=== PATIENT | male | born 1980 | race African-American/Black ===

== ENCOUNTER 2019-10-26 12:22 | Emergency (ER) | payer OTHER ==
[~2019-10-26] VITALS: Ht 182.9 cm; Wt 90.7 kg
[2019-10-26 12:22] VITALS: BP 116/77
--- NOTE | 2019-10-26 12:25 | NUR ---
ED Nurse Note: patient brought into ED from the street with [employer] by [employer] due to medical clearance. per EMS, Versed IM 5mg given by EMS en route because patient was agitated and combative. patient is appers to be calm at this time upon arrival to ED. [employer] at bedside. patient placed in a private room, patient is not giving his name and date of at this time.
--- NOTE | 2019-10-26 12:41 | Emergency Room Report ---
History of Present Illness General Chief Complaint: Medical Clearance Source: Patient Present Illness HPI 39-year-old male with unknown history of psychiatric disorder, appears to be schizophrenia brought in by [employer] for medical clearance. Patient called 911 due to hearing worsening voices. Patient is under the custody of police. Patient does not recall medication that he is taking. Refused to take Zyprexa here. Denies any suicidal homicidal ideations. Denies any pain or discomfort at this time. Has full judgment, alert and awake. In no apparent distress. Denies any fever and chills and URI symptoms. Reports that he does not know whether he has or not used drugs. Allergies: Coded Allergies: UNABLE TO ASSESS (Unverified , 10/26/19) Patient History Past Medical History: see triage record Past Surgical History: none Family History: none Immunizations: UTD Reviewed Nursing Documentation: PMH: Agreed; PSxH: Agreed Nursing Documentation-PM Past Medical History: No History, Except For Review of Systems All Other Systems: negative except mentioned in HPI Physical Exam Vital Signs Date Time Temp Pulse Resp B/P (MAP) Pulse Ox O2 Delivery O2 Flow Rate FiO2 10/26/19 12:18 98.1 111 18 116/77 (90) 98 Room Air Sp02 EP Interpretation: reviewed, normal General Appearance: alert/responsive, no apparent distress, GCS 15, non-toxic Head: atraumatic Eyes: PERRL, lids + conjunctiva normal ENT: hearing intact, no angioedema Neck: supple/symm/no masses, no meningismus Respiratory: effort normal, no rhonchi, no wheezing, chest symmetrical Cardiovascular: regular rate, rhythm, no edema Gastrointestinal: non-tender Musculoskeletal: normal inspection Psychiatric: no suicidal/homicidal ideation Skin: no rash Lymphatic: normal inspection Medical Decision Making PA Attestation All my diagnosis and treatment plans were reviewed ad discussed with my supervising physician Dr. Esteban Diagnostic Impression: Primary Impression: Psychotic disorder ER Course 39-year-old male with unknown history of psychiatric disorder, appears to be schizophrenia brought in by [employer] for medical clearance. Patient called 911 due to hearing worsening voices. Patient is under the custody of police. Patient does not recall medication that he is taking. Refused to take Zyprexa here. Denies any suicidal homicidal ideations. Denies any pain or discomfort at this time. Has full judgment, alert and awake. In no apparent distress. Denies any fever and chills and URI symptoms. Reports that he does not know whether he has or not used drugs. Ddx considered but are not limited to: generalized anxiety disorder, panic attack, depression with psycotic featurs, bipolar disorder, drug overdose Vital signs: are WNL, pt. is afebrile H&PE are most consistent with: Schizophrenia ORDERS: none required at this time, the diagnosis is clinical ED INTERVENTIONS: Zyprexa DISCHARGE: At this time pt. is stable for d/c to home. Will provide printed patient care instructions, and any necessary prescriptions. Care plan and follow up instructions have been discussed with the patient prior to discharge. Patient was medically cleared, given list of mental health institution to go to. Stable at time of discharge. Last Vital Signs Date Time Temp Pulse Resp B/P (MAP) Pulse Ox O2 Delivery O2 Flow Rate FiO2 10/26/19 12:24 111 18 Room Air 10/26/19 12:22 98.1 116/77 98 Disposition: LAW ENFORCEMENT IN [facility]UST Condition: Stable Patient Instructions: Psychosis, Schizophrenia Additional Instructions: Follow-up with psychiatrist, a list of psychiatric facilities was given to you. If worsening symptoms return to the emergency room Adalgisa Martinez Oct 26, 2019 12:41
--- NOTE | 2019-10-26 12:54 | NUR ---
ER DISCHARGE NOTE: Patient is medically cleared to be discharged per NATALIA BRUMFIELD, pt is aox4, on room air, with stable vital signs. pt was given dc instructions, pt was able to verbalize understanding, pt id band removed without complications. pt is able to ambulate with steady gait. pt took all belongings
[2019-10-26 13:00] VITALS: BP 116/77
== END 2019-10-26 13:20 ==
LOC: EDBD 12:22 → EMR 12:48
DX: F29 Unspecified psychosis not due to a substance or known physiological condition (principal)
CPT/HCPCS: 99282